=== PATIENT | male | born 1985 | race Hispanic/Latino ===

== ENCOUNTER 2018-03-12 04:49 | Emergency (ER) | payer OTHER ==
[2018-03-12] MEDS: NAPROXEN 250 MG TAB PO (06:15)
[2018-03-12] MEDS: OXYCODONE/APAP 5MG/325MG(BULK FOR ED) 1 TABLET PO (06:15)
[2018-03-12] MEDS: METHOCARBAMOL 500 MG TAB PO (06:15)
== END 2018-03-12 06:38 | disposition home or self-care (01) ==
LOC: M ED 04:49
DX: M25.512 Pain in left shoulder (principal)
CPT/HCPCS: 99283

== ENCOUNTER 2018-04-03 22:30 | Emergency (ER) | payer OTHER ==
[2018-04-03] MEDS: METHOCARBAMOL 750 MG TAB PO (23:09)
[2018-04-03] MEDS: PERCOCET 5MG/325MG TAB PO (23:09)
[2018-04-04] MEDS: predniSONE 20 MG TAB PO (00:56)
[2018-04-04] MEDS: MORPHINE 10 MG/ML 1ML VIAL (J2270) IM (00:57)
== END 2018-04-04 04:35 | disposition home or self-care (01) ==
LOC: M ED 04-04 04:35
DX: M54.12 Radiculopathy, cervical region (principal); Z79.899 Other long term (current) drug therapy; Z79.1 Long term (current) use of non-steroidal anti-inflammatories (NSAID); Z79.891 Long term (current) use of opiate analgesic
CPT/HCPCS: J2270

== ENCOUNTER 2018-04-15 11:50 | Emergency (ER) | payer OTHER ==
[2018-04-15] MEDS: MORPHINE 10 MG/ML 1ML VIAL (J2270) IM (12:57)
[2018-04-15] MEDS: LORazepam 2 MG/ML VIAL (J2060) IV ×2 (14:51→17:31)
== END 2018-04-15 20:28 | disposition home or self-care (01) ==
LOC: M ED 11:50
DX: M50.222 Other cervical disc displacement at C5-C6 level (principal); M54.12 Radiculopathy, cervical region
CPT/HCPCS: J2060

== ENCOUNTER 2018-09-01 12:28 | Inpatient (IN) | payer OTHER ==
--- NOTE | 2018-08-22 18:28 | HPE ---
DATE OF SCHEDULED ADMISSION: 09/01/2018 ATTENDING PHYSICIAN: Dr. Deleon CHIEF COMPLAINT: Neck pain, pain radiating to his left upper extremity, weakness in his left upper extremity. HISTORY: This is a pleasant 32-year-old male patient with progressively worsening neck pain and left upper extremity symptoms starting around October. He failed to improve with conservative management. He feels weakness in his left upper extremity. He has tried therapy, gabapentin, rest, activity modification profile and continues to be symptomatic. He has elected for surgery for his continued symptoms. He has consented by Dr. Deleon for an anterior cervical decompression and fusion C5-6 with the use of a metal cage and iliac crest donor bone graft from the right side. X-rays of his cervical spine notable for degenerative changes at C5-6. MRI is consistent with a large left-sided disc bulge at C5-6. There is decreased disc height at C5-6. ALLERGIES: No known drug allergies. CURRENT MEDICATIONS: - gabapentin 300 mg twice a day MEDICAL CONDITIONS: Cervical degenerative disc disease and disc herniation at C5-6, left upper extremity weakness and radiculopathy. SURGICAL HISTORY: None. FAMILY HISTORY: Noncontributory. SOCIAL HISTORY: Does not smoke. He does not use alcohol. He is employed in the . REVIEW OF SYSTEMS: Denies fever or chills. Denies chest pain, shortness of breath or cough. Denies difficulty breathing. Denies abdominal pain. Denies loss of bowel or bladder control. Denies change in his bowel or bladder habit. Notes persistent neck pain, pain radiating to his left upper extremity, weakness in his left upper extremity. PHYSICAL EXAM: Today reveals an alert, well-nourished, well-developed male patient. He ambulates with a normal gait. His gait is not wide based. He does not use assistive devices. Mood and affect appropriate for the situation. Neck is supple without adenopathy or jugular venous distention (JVD). Spurling's is positive with increased symptoms of the left upper extremity. There is decreased strength on the left side in the biceps. Deep tendon reflex on the left side notable for biceps reflex of 1, on the right side 2, brachial radialis is 1 bilaterally. Lungs are clear to auscultation without rales or wheeze. Heart: Regular rate and rhythm. Abdomen: Bowel sounds are present. Height 72 inches, weight 250 pounds, temperature 96.9, blood pressure 124/83, pulse 60, respirations 18. LABORATORY DATA: None collected. IMPRESSION: Cervical degenerative disc disease C5-6 with radiculopathy and left-sided weakness. PLAN: He has consented by Dr. Deleon for an anterior cervical decompression and fusion at C5-6 with the use of right iliac crest graft that is morselized and the use of a 4WEB metal cage.
[~2018-09-01] VITALS: Ht 180.3 cm; Wt 113.0 kg
[~2018-09-01 12:28] MED LIST: DIAZ5TAB; GABA-843 PO; GABAPENTIN 100 MG CAP PO ONE; KETO10TAB PO; LR 1,000 ML IV ONE; NAPR-837 PO; PERC5TAB12 PO; PERCOCET 5MG/325MG TAB PO ONE; PRED20TA PO; ROBA500T PO; TRAM50TA2
[2018-09-01] MEDS ORDERED: LIDOCAINE W/EPINEPHRINE 1% 20ML VIAL As Ordered ONE (13:28)
[2018-09-01] MEDS ORDERED: THROMBIN SOLN 20,000 UNITS KIT As Ordered ONE (13:28)
[2018-09-01] MEDS ORDERED: BUPIVACAINE/EPIN 0.25% 30 ML VIAL As Ordered ONE (13:28)
[2018-09-01] MEDS ORDERED: methylPREDNISolone 500 MG VIAL (J2930) As Ordered ONE (13:28)
[2018-09-01] MEDS ORDERED: BACITRACIN PWD 50,000 UNITS VIAL As Ordered ONE (13:29)
[2018-09-01] MEDS ORDERED: MIDAZOLAM INJ 2 MG/2 ML VIAL (J2250) As Ordered ONE (14:05)
[2018-09-01] MEDS ORDERED: fentaNYL 250 MCG/5 ML INJECTION (J3010) As Ordered ONE (14:05)
[2018-09-01] MEDS ORDERED: LIDOCAINE 2% INJ 100 MG/5 ML SDV (FOR ANES.) As Ordered ONE (14:07)
[2018-09-01] MEDS ORDERED: dexameTHASONE 4 MG/ML 1ML VIAL (J1100) As Ordered ONE (14:07)
[2018-09-01] MEDS ORDERED: ROCURONIUM BROMIDE 50 MG/5 ML VIAL As Ordered ONE ×2 (14:07→16:17)
[2018-09-01] MEDS ORDERED: ONDANSETRON 4MG/2ML VIAL (J2405) As Ordered ONE (14:07)
[2018-09-01] MEDS ORDERED: PROPOFOL 200 MG/20 ML VIAL As Ordered ONE (16:32)
[2018-09-01] MEDS ORDERED: SUGAMMADEX SODIUM 500 MG/5 ML VIAL (BRIDION) As Ordered ONE (18:25)
--- NOTE | 2018-09-01 18:50 | REP ---
Clinical: Cervical fixation. Technique: 2 Portable cross-table lateral intraoperative radiographs of the cervical spine. Findings: Final image demonstrates the patient to be status post anterior fixation at the C5-6 level. Alignment is maintained. Impression: Status post anterior fixation and discectomy at the C5-6 level. Electronically Signed by Gilberto Julio MD 09/01/2018 06:41 P
[2018-09-01] MEDS ORDERED: ONDANSETRON 4MG/2ML VIAL (J2405) IV PRN (19:15)
[2018-09-01] MEDS ORDERED: D5W/LR 1,000 ML IV SCH (19:15)
[2018-09-01] MEDS ORDERED: PERCOCET 5MG/325MG TAB PO PRN ×2 (19:15→19:30)
[2018-09-01] MEDS ORDERED: LR 1,000 ML IV SCH (19:15)
[2018-09-01] MEDS ORDERED: CYCLOBENZAPRINE 10 MG TAB PO PRN (19:30)
[2018-09-01] MEDS ORDERED: HYDROMORPHONE HCL 0.5 MG/ 0.5 ML SYRINGE (J1170 PER 1) IV PRN (19:30)
[2018-09-01] MEDS ORDERED: PROMETHAZINE INJ 25 MG/ML VIAL (J2550) IV PRN (19:30)
[2018-09-01] MEDS: HYDROMORPHONE HCL 0.5 MG/ 0.5 ML SYRINGE (J1170 PER 1) IV PRN ×2 (19:37→20:08)
[2018-09-01] MEDS: fentaNYL 100 MCG/2 ML INJECTION (J3010) IV PRN ×3 (19:44→20:04)
[2018-09-01 20:45] VITALS: BP 130/73
[2018-09-01 21:15] VITALS: BP 138/79
[2018-09-01] MEDS: GABAPENTIN 300 MG CAP PO SCH (22:10)
[2018-09-01 22:15] VITALS: BP 141/79
[2018-09-01] MEDS: PERCOCET 5MG/325MG TAB PO PRN (22:52)
[2018-09-01 23:15] VITALS: BP 145/76
[2018-09-02 00:15] VITALS: BP 132/68
[2018-09-02 01:15] VITALS: BP 140/70
[2018-09-02] MEDS: PERCOCET 5MG/325MG TAB PO PRN ×2 (03:10→07:55)
[2018-09-02 06:00] VITALS: BP 138/70
[2018-09-02] MEDS: GABAPENTIN 300 MG CAP PO SCH (07:55)
--- NOTE | 2018-09-02 07:57 | RO ---
DATE OF PROCEDURE: 09/01/2018 PREOPERATIVE DIAGNOSIS: Left upper extremity radiculopathy secondary to disk herniation at C5-6. POSTOPERATIVE DIAGNOSIS: Left upper extremity radiculopathy secondary to disk herniation at C5-6. PROCEDURE PERFORMED: Anterior cervical diskectomy and fusion procedure. Specifically anterior cervical diskectomy and fusion the removal of disk material preparation endplate decompression of thecal sac and, use of interbody biomechanical device / cage device, harvest and placed in the iliac crest morselized bone graft for spine surgery, application the anterior cervical instrumentation C5-6. SURGEON: Dr. Deleon ASSISTING: GINA Martin. Present in the observatory capacity was Dr. Evan Grande [facility]. ANESTHESIA: General. ESTIMATED BLOOD LOSS: Less than 50 mL replaced with crystalloid. COMPLICATIONS: No complications. COMPONENTS USED: Include four web size 7 large lordotic titanium cage, skyline 12 mm anterior cervical plate and 15 mm screws, INDICATIONS: Discomfort radiating down the left upper extremity as well as neck pain. The patient has elected for operative intervention. Consent was reviewed in detail including a douglas discussion of pathology involved procedure proposed, alternatives including doing nothing as well as alternatives including using donor bone which the patient specifically declines. Next, risks including but not limited to pain, failure, infection, bleeding blood loss, incomplete relief of symptoms donor site pain, paralysis, nerve injury, hoarseness, swallowing trouble and other issues. The patient agrees to proceed. Operative course identified holding area site side verified brought to the operating once anesthesia was administered, sterilely prepped, draped usual fashion for exposure of the cervical spine head halter traction 7 pounds was applied. Next, the I utilized 3.5 loupe magnification as well as a headlamp. Mr. Bagley stood on the opposite side of the table. Dr. Evan Grande that is scrubbed in and occasionally rotated so that he could observe. Next, the incision was outlined with a marking pen infiltrated with 1% lidocaine and made with the 10 blade knife developed down through skin and subcuticular tissues. Platysma was identified, elevated divided subcuticular to its fibers. Platysma was fairly hypertrophic was divided with a bipolar cautery and tenotomy scissor dissection continued allowing identification of the sternocleidomastoid muscle as well as the omohyoid muscle. Dissection continued superior to the omohyoid in the medial to the sternocleidomastoid the carotid sheath was palpated and then identified. Dissection continued medical to the carotid sheath until we encountered the prevertebral fascia. Prevertebral fascia was elevated and several leaves exposing the disk space at C5-6. Next, I palpated the largest osteophyte which was presumably C5-6. We placed a bayonet spinal needle at that level and at this space. This point obtained a cross-table lateral x-ray which verified our level. Next, Mr. Bagley utilized S-retractors to help expose while I elevated the medial border of the longus coli musculature bilaterally. Next, once this was accomplished I placed distraction pins followed by the shadow line retractor. Next, I utilized to 11 blade to open the annulus at C5-6 and then removed disk material. Next, I utilized curettes to further remove cartilaginous endplate and then I utilized the oval bur to further contour endplates as well as take down the uncinate processes down to the level of the post posterior longitudinal ligament. The 4-0 curettes were utilized to elevate the posterior longitudinal ligament and then I utilized 1 mm and 2mm Kerrisons to elevate and remove the posterior longitudinal ligament. There did seem to be some a hard fibrous tissue in the left lateral recess consistent with his history of old disc herniation towards the left. Next, irrigation was accomplished, rasps were utilized through a rasps through a size seven rasp. Size 7 lordotic was utilized and this fit appropriately. Next, at this stage, I irrigated and then we turned attention to harvested iliac crest. The anterior superior iliac spine was palpated. Incision was plotted about 5 cm posterior to it, made with a 10 blade and developed down through skin and subcuticular tissues. Mr. Bagley assisted with [facility] retractors. The lateral aspect of iliac crest was exposed. I then utilized oval bur to open the iliac crest and then I utilized large curettes to obtain morselized iliac crest bone graft. Next, once we had an adequate amount of bone graft from the iliac crest. We irrigated the wound and pressed the bone graft into the non trial seven lordotic four web titanium cage. We also smoothed over the cage with a layer of [employer] demineralized bone matrix putty. Next, once this was accomplished the cage was then implanted under direct visualization. Next, once this was accomplished the case of the cage was tamped into place and the S retractors were utilized and I removed the distraction pins and plugged of the holes with wax debrided the anterior osteophyte using the oval bur. We then placed the 12-mm plate to fit appropriately drilled in place 15 mm self tapping screws and in the plate and locked the plate locking device, engaged the plate locking device. Next, once this was accomplished again irrigated and Mr. Bagley and I closed the wound. Dermabond utilized on skin. [place] collar was applied. The patient was extubated, moved to the recovery room good condition for further details please refer to medical record.
== END 2018-09-02 10:20 | disposition home or self-care (01) | DRG 473 ==
LOC: M OR 12:28 → M MS5PR 20:39
PROVIDERS: ADMIT Orthopaedic Surgery; ATTEND Orthopaedic Surgery
PROC: 0RG20A0 Fusion of 2 or more Cervical Vertebral Joints with Interbody Fusion Device, Anterior Approach, Anterior Column, Open Approach (ICD-10-PCS; principal; 2018-09-01 15:00)
DX: M50.122 Cervical disc disorder at C5-C6 level with radiculopathy (principal); Z79.899 Other long term (current) drug therapy

== ENCOUNTER → 2019-05-26 | Outpatient (CLI) | payer OTHER ==
[~2019-05-26] MED LIST changes: -GABAPENTIN 100 MG CAP PO ONE; -LR 1,000 ML IV ONE; -PERCOCET 5MG/325MG TAB PO ONE
--- NOTE | 2019-05-26 15:10 | REP ---
TRIPLE PHASE BONE SCAN CERVICAL SPINE REGION: Following the intravenous administration of 22 mCi of technetium 99m MDP, three phase imaging of the cervical spine region performed in the flow phase, immediate blood pool phase and 2.5 hour delayed phases of imaging in multiple projections. There is no abnormal blood flow or blood pool seen in the cervical region. Delayed images show very mild increased uptake in the anterior inferior cervical spine region at the site of metallic fixation placement for 09/01/2018, as expected. No other abnormal uptake is seen in the cervical spine region. Elsewhere there is homogeneous radiotracer uptake in the visualized osseous structures. IMPRESSION: Mild increased radiotracer uptake in the anterior inferior cervical spine region at the site of metallic fixation placement 09/01/2018, as expected. Otherwise negative triple phase bone scan of the cervical spine region. Electronically Signed by Parker Jiang MD 05/26/2019 05:15 P
== END ==
LOC: M RAD 09:04
PROVIDERS: ATTEND Orthopaedic Surgery
DX: Z98.1 Arthrodesis status (principal)
CPT/HCPCS: 78315; A9503